=== PATIENT | female | born 1980 | race Caucasian/White ===

== ENCOUNTER 2021-12-15 04:46 | Inpatient (IN) | payer BC, OTHER ==
--- OUTSIDE RECORDS SUMMARY | 2021-12-15 04:48 | XMS REPORT | Continuity of Care Document ---
:1980 Author Organization [facility] t Address [address] [place] [address] Care Team Providers Name Role Phone [phone] Primary Care Physician Unavailable Clementina WAGNER Attending Clinician Beulah Queen MA Attending Clinician Unavailable CLEMENTINA Attending Clinician Unavailable Tristan Attending Clinician Unavailable Amberly Interiano NP Attending Clinician AMBERLY INTERIANO Attending Clinician Unavailable Unique Hope MA Attending Clinician Unavailable Wade MORTON Attending Clinician Garrett WAGNER Attending Clinician Geena MCKNIGHT Attending Clinician Unavailable Rd OJEDA Attending Clinician Unavailable BERNARD CISNEROS Attending Clinician Unavailable Myesha LUCAS Attending Clinician Unavailable RUSSELL KINSEY Attending Clinician Unavailable Payers Payer Name Policy Type Policy Number Effective Date Expiration Date S julian BLUE CROSS BLUE [id number] 2017 MD Donato FER[place]ND[place] PPO 00:00:00 [id number], [place] [address]YBC Problems Condition Condition Condition Status Onset Resolution Last Treating Co mments Source Name Details Category Date Date Treatment Clinician Date Depression Depression Disease Active [facility]15 [facility] 00:00: of 00 Medicin e Allergies, Adverse Reactions, Alerts Allergy Allergy Status Severity Reaction(s) Onset Inactive Treating Comm ents Source Name Type Date Date Clinician No Known DA Active [facility] [place] Family History Family Member Diagnosis Comments Start Date Stop Date Source Natural mother Breast cancer MD Donato santoro Social History Social Habit Start Date Stop Date Quantity Comments Source History [facility] MD Mcknight Alcohol Frequency History [facility] MD Mcknight Alcohol Std Drinks History [facility] MD Mcknight Alcohol Binge Tobacco use and 2021-01-30 2021-01-30 Smokeless tobacco MD Mcknight exposure 00:00:00 00:00:00 non-user Alcohol intake 2021-01-30 2021-01-30 Current drinker of MD Mcknight 00:00:00 00:00:00 alcohol (finding) History [facility] 2021-01-30 2021-01-30 occs. MD Mcknight Alcohol Comment 00:00:00 00:00:00 Sex Ass[birth year] At [birth year] MD [place] on 00:00:00 00:00:00 Smoking Status Start Date Stop Date Source Never smoker [facility] o f Medicine Medications Ordered Filled Start Stop Current Ordering Indication Dosage Frequency Signature Comments Components Source Medication Medication Date Date Medication? Clinician (SIG) Name Name Multiple Yes Take by [facility] 3-22 mouth. [facility] e [facility] 15:33: of (MULTIVITAM 19 Medicin IN WOMEN e OR) triamcinolo Yes [id number] Apply [facility] ne - twice a College (KENALOG) 00:00: day to the of 0.1 % 00 affected Medicin ointment area for e one week valacyclovi 2020- No [id number] 1000mg Take 1 Adrian r (VALTREX) 3-22 04- Tablet by Co llege 1 g tablet 00:00: 04:59 mouth two o f 00 :00 times Medicin daily for e 10 days. Multiple Yes Take by [employer] 3-11 mouth. [employer] e n[employer] 21:17: of (MULTIVITAM 43 Medicin IN WOMEN e OR) buPROPion Yes 150mg Take 150 MD (WELLBUTRIN 3-11 mg by Anderso XL) 150 mg 00:00: mouth n 24 hr 00 daily. tablet buPROPion Yes [id number] 150mg Take 1 [facility] (WELLBUTRIN 3-11 Tablet by Col lege ) 150 MG XL 00:00: mouth of tablet 00 daily. Medicin e buPROPion Yes [id number] 150mg Take 1 [employer] [facility] (WELLBUTRIN 3-11 Tablet by Col lege ) 150 MG XL 00:00: mouth of tablet 00 daily. Medicin e phentermine Yes 1{tbl} Take 1 MD (ADIPEX-P) 1-23 tablet by Donatoshanna evans 37.5 mg 00:00: mouth as n tablet 00 needed. phentermine Yes 37.5mg Take 37.5 Adrian (ADIPEX-P) 1-23 mg by [place] 37.5 MG 00:00: mouth as of tablet 00 needed. Medicin e buPROPion 150mg Take 150 [facility] (WELLBUTRIN 1-21 03-11 mg by Linda otero ) 150 MG XL 00:00: 00:00 mouth of tablet 00 :00 daily. Medicin e Immunizations Ordered Immunization Filled Immunization Date Status Commen ts Source Name Name Pfizer SARS-CoV-2 2020-11-01 Completed MD Sewell rson Vaccination 00:00:00 Pfizer SARS-CoV-2 2020-10-21 Completed [facility] Vaccination 00:00:00 of Medicine Pfizer SARS-CoV-2 2020-10-21 Completed [facility] Vaccination 00:00:00 of Medicine Pfizer SARS-CoV-2 2020-10-07 Completed [facility] Vaccination 00:00:00 of Medicine Pfizer SARS-CoV-2 2020-10-07 Completed [facility] Vaccination 00:00:00 of Medicine Pfizer SARS-CoV-2 2020-10-01 Completed MD Sewell rson Vaccination 00:00:00 Vital Signs Vital Name Observation Time Observation Value Comments Source HEIGHT 2021-01-30 10:23:25 166 cm WEIGHT 2021-01-30 10:23:25 80.6 kg HEIGHT 2021-01-30 10:23:25 166 cm WEIGHT 2021-01-30 10:23:25 80.6 kg Systolic blood 2021-01-06 15:28:00 118 mm[Hg] [facility] Medicine Diastolic blood 2021-01-06 15:28:00 72 mm[Hg] [facility] Medicine Heart rate 2021-01-06 15:28:00 77 /[facility] temperature 2021-01-06 15:28:00 36.78 Flor [facility] Respiratory rate 2021-01-06 15:28:00 16 /min [facility] Body height 2021-01-06 15:28:00 167.6 cm [facility] Body weight 2021-01-06 15:28:00 81.557 kg [facility] BMI 2021-01-06 15:28:00 29.02 kg/m2 [facility] Oxygen saturation in 2021-01-06 15:28:00 98 /min [facility] Arterial blood by Medicine Pulse oximetry Systolic blood 2020-12-26 21:11:00 120 mm[Hg] [facility] Medicine Diastolic blood 2020-12-26 21:11:00 76 mm[Hg] [facility] Medicine Heart rate 2020-12-26 21:11:00 72 /min [facility] Body temperature 2020-12-26 21:11:00 36.11 Flor [facility] Respiratory rate 2020-12-26 21:11:00 18 /min [facility] Body height 2020-12-26 21:11:00 167.6 cm [facility] Body weight 2020-12-26 21:11:00 82.101 kg [facility] BMI 2020-12-26 21:11:00 29.21 kg/m2 [facility] Oxygen saturation in 2020-12-26 21:11:00 98 /min [facility] Arterial blood by Medicine Pulse oximetry Body temperature 2021-11-04 17:53:[address] blanchard Systolic blood 2021-05-15 17:52:00 122 mm[Hg] pressure Diastolic blood 2021-05-15 17:52:00 84 mm[Hg] MD Elizabeth cano pressure Heart rate 2021-05-15 17:52:00 91 /min MD Jony son Oxygen saturation in 2021-05-15 17:52:00 98 /min MD Mcknight Arterial blood by Pulse oximetry Respiratory rate 2021-01-30 15:23:25 20 /min MD Rd blanchard Body height 2021-01-30 15:23:25 166 cm MD Jony sr Body weight 2021-01-30 15:23:25 80.6 kg MD Jony sr BMI 2021-01-30 15:23:25 29.25 kg/m2 MD Jony sr Procedures Procedure Date / Time Performed Performing Clinician Issac otero MD COVID-19 (SARS-COV-2) PCR 2021-11-04 17:54:00 Cristi Panda MD ASYMPTOMATIC HC COVID19 AUTOMATED PCR 2021-05-15 17:57:00 Marleny Mcrae MD US BREAST COMPLETE BILATERAL 2021-01-30 20:25:14 Valdez Interiano MD US CHEST 2021-01-30 20:25:14 Valdez Interiano MD Donato rson MAMMO DIGITAL DIAGNOSTIC 2021-01-30 19:45:05 Valdez Interiano MD BILATERAL HC 2019-NCOV COVID-19 2021-01-27 19:21:00 Valdez Interiano Plan of Care Planned Activity Planned Date Details Comments Source Future Scheduled 2021-04-01 COVID-19 Vaccination (3 MD Mcknight Test 00:00:00 - Booster) [code = COVID-19 Vaccination (3 - Booster)] Future Scheduled LIPID PANEL [code = Ordered: [employer] Test 08340-2] 12/26/2020 of Medicine Future Scheduled HEPATIC FUNCTION PANEL Ordered: [employer] Test [code = 57116-1] 12/26/2020 of Medicine Future Scheduled HIV AB/AG 4TH GEN W Ordered: [employer] Test RFLX [code = 77876-3] 12/26/2020 of Med icine Future Scheduled HEPATITIS C ANTIBODY Ordered: [facility] Test [code = 09071-0] 12/26/2020 of Medicine Future Scheduled TETANUS SHOT (ADULT) [employer] [facility] Test [code = TETANUS SHOT of Medi cine (ADULT)] Future Scheduled BMI FOLLOW UP PLAN [employer] Test [code = BMI FOLLOW UP of Med icine PLAN] Future Scheduled Hepatitis C screening [employer] Test (procedure) [code = of Medic ine 783906759] Future Scheduled Human immunodeficiency [employer] Test virus screening of Medicine (procedure) [code = 219518911] Future Scheduled Screening for malignant [facility] Test neoplasm of cervix of Medici ne (procedure) [code = 742658121] Future Scheduled FLU VACCINE > 6 MONTHS [employer] Test [code = FLU VACCINE > 6 of M edicine MONTHS] Future Scheduled HSV TYPE 1/2 COMBINED Ordered: [employer] Test AB IGM [code = NOCPT] 01/06/2021 of Med icine Future Scheduled LUPUS PROFILE [code = Ordered: [employer] Test NOCPT] 01/06/2021 of Medicine Future Scheduled TSH [code = 22505-3] Ordered: [employer] Test 01/06/2021 of Medicine Future Scheduled TETANUS SHOT (ADULT) [employer] Test [code = TETANUS SHOT of Medi cine (ADULT)] Future Scheduled BMI FOLLOW UP PLAN [employer] Test [code = BMI FOLLOW UP of Med icine PLAN] Future Scheduled Hepatitis C screening [employer] Test (procedure) [code = of Medic ine 120455872] Future Scheduled Human immunodeficiency [employer] Test virus screening of Medicine (procedure) [code = 857687974] Future Scheduled Screening for malignant [facility] Test neoplasm of cervix of Medici ne (procedure) [code = 387104432] Future Scheduled FLU VACCINE > 6 MONTHS [employer] Test [code = FLU VACCINE > 6 of M edicine MONTHS] Future Scheduled TSH REFLEX TO FREE T4 Ordered: [employer] Test [code = 3016-3] 12/26/2020 of Medicine Future Scheduled HEMOGLOBIN A1C [code = Ordered: [employer] Test 4548-4] 12/26/2020 of Medicine Future Scheduled BASIC METABOLIC PANEL Ordered: [employer] Test [code = 05683-4] 12/26/2020 of Medicine Future Scheduled CBC W/AUTO DIFF WITH Ordered: [employer] Test PLATELETS [code = 12/26/2020 of Medicin e 79355-1] Encounters Start End Encounter Admission Attending Care Care Encounter Source Date/Time Date/Time Type Type Clinicians Facility Department ID 2021-11-04 2021-11-04 Outpatient ACOSTA MCRAE MDA MDA [id number] 11:47:05 11:47:05 AMINA shell 2021-05-15 2021-05-15 Outpatient ACOSTA MCRAE MDA MDA [id number] 12:49:34 13:00:17 AMINA shell 2021-01-30 2021-01-30 Outpatient VALDEZ ARELLANO MDA MDA [id number] 14:15:00 23:59:00 Alejandro shell 2021-01-30 2021-01-30 Outpatient VALDEZ ARELLANO MDA MDA [id number] 13:07:37 14:14:00 Alejandro shell 2021-01-30 2021-01-30 Outpatient VALDEZ ARELLANO MDA MDA [id number] 09:50:48 10:57:10 Alejandro shell 2021-01-30 2021-01-30 Outpatient ACOSTA MCRAE MDA MDA [id number] 09:46:32 09:46:45 AMINA shell 2021-01-27 2021-01-27 Outpatient ACOSTA MCRAE MDA MDA [id number] 14:08:16 14:21:50 AMINA shell 2021-01-06 2021-01-06 Office Olvera, BCM [id number] [facility] 10:11:49 16:41:06 Visit Tati AMBULATOR 350.1.13.21 College Y 0.2.7.2.686 of [id number] Medi efraín 300 e 2020-12-26 2020-12-26 Office Garrett, BCM [id number] [facility] 15:08:29 17:36:30 Visit Anabel AMBULATOR 350.1.13.21 College Y 0.2.7.2.686 of [id number] Medi efraín 300 e 2020-10-24 2020-10-24 Outpatient ACOSTA MCKNIGHT, MDA MDA [id number] 13:26:05 13:38:57 NATALIYA shell 2020-10-22 2020-10-22 Outpatient ACOSTA OJEDA, MDA MDA [id number] 15:24:10 15:34:01 Sarah shell 2020-06-20 2020-06-20 Outpatient ACOSTA BLAYNE, MDA MDA [id number] 12:03:24 12:21:19 TAWANA shell 2020-04-29 2020-04-29 Outpatient ACOSTA LUCAS MDA [facility] [id number] 13:59:17 14:13:43 CLEMENTINA shell 2020-04-17 2020-04-17 Outpatient ACOSTA WELLS JR, MDA [facility] [id number] 12:50:49 16:37:22 SUSAN shell Results Test Description Test Time Test Comments Results Result Comments Source COVID-19 (LUCERO-CoV-2) PCR Asymptomatic 2021-11-05 12:21:42 Test Item Value Reference Range Interpretation Comme nts COVID19 SARS Indication (test Employee request code = 20168) COVID19 SARS Result (test code Not Detected Not Detected = 53271-7) COVID19 SARS Interpretation SARS-CoV-2 NOT Detected. Reference (test code = 03051) Range: Not Detected Methodology: The Rivera RealTime SARS-CoV-2 assay is a qualitative real-time reverse forepart reducer polymerase chain reaction (finance director-PCR) test to detect RNA from SARS-CoV-2 in nasal, nasopharyngeal and oropharyngeal swabs from patients with signs and symptoms of infection who are suspected of COVID-19 by their health care provider. The Rivera RealTime SARS-CoV-2 performed on the SPark!000 System is a dual target assay with primers and probes for the RdRp and N genes. Results must be interpreted within the context of all relevant clinical and laboratory findings, and epidemiological risk factors. Positive results are indicative of the presence of SARS-CoV-2 RNA; clinical correlation with patient history and other diagnostic information is necessary to determine patient infection status. Positive results do not rule out bacterial infection or co-infection with other viruses. Negative results do not preclude SARS-CoV-2 infection and should not be used as the sole basis for patient management decisions. The Rivera RealTime SARS-CoV-2 assay is for in vitro diagnostic use under FDA Emergency Use Authorization only. Testing is limited to laboratories certified under the Clinical Laboratory Improvement Amendments of 1988 (CLIA), 42U.S.C. 263a, to perform high complexity tests. The Test was performed by the CLIA-certified, high-complexity Molecular Diagnostics Laboratory (MDL) at [facility] under the Food and Drug Administration (FDA) s Emergency Use Authorization. Factsheet for patients: https://www.[facility].org/AbbottFactS heetPatientsFactsheet for healthcare providers: https://www.[facility].org/AbbottFactS heetHCP Test performed by:[facility] Molecular Diagnostic [id number] [place] [address] MD McknightCOVID-19 (SARS CoV-2) PCR-Symptomatic [id number] 07:58:02 Test Item Value Reference Range Interpretation Comments COVID19 (SARS CoV-2) Detected Not Detected A This te st is a Result (test code = qualitat ainsley 48055-1) reverse-transcr iptase polymerase walter n reaction (RT-PC R) developed for t he Jennifer LILIAN 680 0 system and inte nded for the detecti on of SARS CoV-2 RNA in human nasophary ngeal specimens from patients who me et COVID-19 clinic al and/or epidemiological criteria. This assay has been approv ed by the FDA for use only under Emergency Use Authorization ( EUA) in laboratories that have been CLIA-certified to perform moderate-comple xity and high-comple xity tests. The performance characteristics of this assay were verified by the Microbiology Laboratory at [facility], CLIA Accreditation # : [id number] and CAP Accreditation # : [id number]. Result s must be interpreted within the context of all relevant clinic al and laboratory find ings and should not form the sole basis for a diagnosis or treatment decis ion. "Presumptive Positive" resul ts are due to partial amplification o f SARS-CoV-2 targ ets and indicates l ow amounts of viru s present in the specimen at or near the limit of detection. Regardless, individuals wit h "Presumptive Positive" resul ts should be manag ed per institutional guidelines as individuals pos itive for SARS-CoV-2 virus, including use o f appropriate inf ection control protoco ls. Internal contro ls are included to ass ess for possible amplification inhibitors. If inhibition is detected, testi ng is repeated and if inhibition is confirmed the specimen is res ulted as "Invalid". W hen an "Invalid" resul t occur, it is recommended to wait 3 days before submitting a ne w specimen for te sting if clinically indicated. COVID19 SARS Source FISHING VESSEL DECKHAND Swab (test code = 20539) CAT (test code = Other->severe CAT) headache Lab Interpretation Abnormal (test code = 78650-6) MD McknightMammography Digital Diagnostic [id number] 20:06:13 Test Item Value Reference Range Interpretation Comments IMP (test code = IMP) 1: Asymmetry in the superior left breast located 10 centimeters from the nipplerequires additional imaging evaluation. An ultrasound exam is recommended. 2: Reported symptoms in the left breast/axilla requires additional imagingevaluation. An ultrasound exam is recommended. BILATERAL US will be performed for dense breast tissue. BI-RADS Category 0:Incomplete: Needs Additional Imaging Evaluation PXN (test code = PXN) Hilda Ramires MD - 01/30/2021 CLINICAL INDICATION:Patient is a 40 year old female and [facility] DIAGNOSTIC BILATERAL COMPARISON:This is a baseline study. FINDINGS:The breasts are heterogeneously dense, which may obscure small masses. There are bilateral retro-pectoral implants. 1: There is an asymmetry seen in the MLO view only in the superior left breastlocated 10 centimeters from the nipple. This is likely overlapping tissues. 2: No mammographic correlate to reported "small purple pot near left breast6:00" or left axillary swelling. In the right breast, no dominant mass, distortion, or suspicious calcificationsare identified. IMPRESSION:1: Asymmetry in the superior left breast located 10 centimeters from the nipplerequires additional imaging evaluation. An ultrasound exam is recommended. 2: Reported symptoms in the left breast/axilla requires additional imagingevaluation. An ultrasound exam is recommended. BILATERAL US will be performed for dense breast tissue. BI-RADS Category 0:Incomplete: Needs Additional Imaging Evaluation Lab Interpretation Abnormal (test code = 61351-5) MD Mcknight- US PELVIS [id number] 09:07:00 Patient Name: TAISHA POWERS Unit No: [id number] Report Has Been Amended EXAMS: CPT CODE: [id number] US PELVIS COMPLETE 10857 Addendum- 07/05/2019 SIGNED 07/05/2019 ADDENDUM: [id number] US/USPELNOBC Please note the following correction in the body regarding uterine measurements: The uterus measures 10.1 x 5.4 x 6.1 cm and contains no focal myometrial abnormalities. at 0907 Reported and signed by: Tori Horner MD Transcribed: 07/05/2019 (0907) Vera Report Pelvic US performed July 042018 COMPARISON: None. CLINICAL HISTORY: Uterine enlargement and abnormal uterine bleeding. DISCUSSION: Real-time carson scale sonography performed of the pelvis via the transabdominal and transvaginal approach. The uterus measures and contains no focal myometrial abnormalities. The endometrium is homogenous and measures 5 mm in thickness. The ovaries are sonographically normal in appearance with the right measuring 52 x 36 x 45 mm and the left measuring 31 x 15 x 28 mm. Simple appearing cyst is presentin the right ovary measuring 46 x 32 x 29 mm. Subcentimeter follicles are seen bilaterally. Normal flow seen in both ovaries. No significant free fluid in seen in the cul de sac. IMPRESSION: 1. Simple appearing cyst is present in the right ovary measuring 46 x 32 x 29 mm. at 1552 Reported and signed by: Tori Horner MD CC: Kavitha Felix MD Technologist: Elizabeth Long RDMS, RVT Probe: Trnscrbd D/ (7382) Vera Orig Print D/T: S: 07/04/2019 (9548) [facility] NAME: [facility] Radiology Department PHYS: Thalia Parr [address] : 1980 AGE: 39 SEX: F [place] [address] LOC: F.RAD PHONE #: [phone] EXAM DATE: 07/04/2019 STATUS: DEP CLI FAX #: [phone] RAD NO: Page 1 Signed Report Patient Name: TAISHA POWERS Unit No: [id number] Report Has Been Amended EXAMS: CPT CODE: [id number] US PELVIS COMPLETE 67214 <Continued> [facility] Department PHYS: Thalia Parr [address] : 1980 AGE: 39 SEX:F [place] [address] LOC: FELECIA PHONE #: [phone] EXAM DATE: 07/04/2019 STATUS: ZORAIDA CLI FAX #: [phone] RAD NO: Page 2 Signed Report- US TRANSVAGINAL [id number] 09:07:00 Patient Name: TAISHA POWERS Unit No: [id number] Report Has Been Amended EXAMS: CPT CODE: [id number] US TRANSVAGINAL W/PELVIS 59204 Addendum- 07/05/2019 SIGNED 07/05/2019 ADDENDUM: [id number] US/TRANPL Please note the following correction in the body regarding uterine measurements: The uterus measures 10.1 x 5.4x 6.1 cm and contains no focal myometrial abnormalities. at 0907 Reported and signed by: Tori Horner MD Transcribed: 07/05/2019 (09) Vera Report Pelvic US performed July 042018 COMPARISON: None. CLINICAL HISTORY: Uterine enlargement and abnormal uterine bleeding. DISCUSSION: Real-time carson scale sonography performed of the pelvis via the transabdominal and transvaginal approach. The uterus measures and contains no focal myometrial abnormalities. The endometrium is homogenous and measures 5 mm in thickness. The ovaries are sonographically normal in appearance with the right measuring 52 x 36 x 45 mm and the left measuring 31 x 15 x 28 mm. Simple appearing cyst is present in the right ovary measuring 46 x 32 x 29 mm. Subcentimeter follicles are seen bilaterally. Normal flow seen in both ovaries. No significant free fluid in seen in the cul de sac. IMPRESSION: 1. Simple appearing cyst is present in the right ovary measuring 46 x 32 x 29 mm. at 4563 Reported and signed by: Tori Horner MD CC: Kavitha Felix MD Technologist: Elizabeth Long RDMS, RVT Probe: [id number] Trnscrbd D/ (5885) Vera Orig Print D/T: S: 07/04/2019 (1555) [facility] NAME: TAISHA POWERS Radiology Department PHYS: Thalia Parr LAMAR [address] : 1980 AGE: 39 SEX: F [place], [place] [address] LOC: AngelaRAD PHONE #: [phone] EXAM DATE: 07/04/2019 STATUS: DEP CLI FAX #: [phone] RAD NO: Page 1 Signed Report Patient Name: TAISHA POWERS Unit No:[id number] Report Has Been Amended EXAMS: CPT CODE: [id number] US TRANSVAGINAL W/PELVIS 01230 <Continued> [facility] NAME: TAISHA POWERS Radiology Department PHYS: Thalia Parr [address] : 1980 AGE: 39 SEX: F [place] [address] LOC: AngelaRAD PHONE #: [phone] EXAM DATE: 07/04/2019 STATUS: DEP CLI FAX #: [phone] RAD NO: Page 2 Signed Report- US PELVIS COMPLETE 2019-07-04 15:52:00 Patient Name: TIASHA POWERS Unit No: [id number] EXAMS: CPT CODE: [id number] US PELVIS COMPLETE 23968 Pelvic US performed July 042018 COMPARISON: None. CLINICAL HISTORY: Uterine enlargement and abnormal uterine bleeding. DISCUSSION: Real-time carson scale sonography performed of the pelvis via the transabdominal and transvaginal approach. The uterus measures and contains no focal myometrial abnormalities. The endometrium is homogenous and measures 5 mm in thickness. The ovaries are sonographically normal in appearance with the right measuring 52 x 36 x 45 mm and the left measuring 31 x 15 x 28 mm. Simple appearing cyst is present in the right ovary measuring 46 x 32 x 29 mm. Subcentimeter follicles are seen bilaterally. Normal flow seen in both ovaries. No significant free fluid in seen in the cul de sac. IMPRESSION: 1. Simple appearing cyst is present in the right ovary measuring 46 x 32 x 29 mm. Electronically Signedby Tori Horner MD on 07/04/2019 at 1552 Reported and signed by: Tori Horner MD CC: Kavitha Felix MD Technologist: Elizabeth Long RDMS, RVT Probe: Trnscrbd D/ (6770) t.CASSG Orig Print D/T: S: 07/04/2019 (4635) [facility] NAME: GRISEL POWERSA Radiology Department PHYS: Thalia Parr [place] [address] : 1980 AGE: 39 SEX: F [place], [place] [address]CAFP NO: [id number] LOC: AngelaRAD PHONE #: [phone] EXAM DATE: 07/04/2019 STATUS: REG CLI FAX #: [phone] RAD NO: Page 1 Signed Report Patient Name: TAISHA POWERS Unit No: [id number] EXAMS: CPT CODE: [id number] US PELVIS COMPLETE 62055 <Continued> [facility] Radiology Department PHYS: NILSA FranciscoThalia larios [place] [address] : 1980 AGE: 39 SEX: F [place] [address] : Mary.RAD PHONE #: [phone] EXAM DATE: 07/04/2019 STATUS: REG CLI FAX #: [phone] RAD NO: Page 2 Signed Report- US TRANSVAGINAL [id number] 15:52:00 Patient Name: TAISHA POWERS Unit No: [id number] EXAMS: CPT CODE: [id number] US TRANSVAGINAL W/PELVIS 72530 Pelvic US performed July 042018 COMPARISON: None. CLINICAL HISTORY: Uterine enlargement and abnormal uterine bleeding. DISCUSSION: Real-time carson scale sonography performed of the pelvis via the transabdominal and transvaginal approach. The uterus measures and contains no focal myometrial abnormalities. The endometrium is homogenous and measures 5 mm in thickness. The ovaries are sonographically normal in appearance with the right measuring 52 x 36 x 45 mm and the left measuring 31 x 15 x 28 mm. Simple appearing cyst is present in the right ovary measuring 46 x 32 x 29 mm. Subcentimeter follicles are seen bilaterally. Normal flow seen in both ovaries. No significant free fluid in seen in the cul de sac. IMPRESSION: 1. Simple appearing cyst is present in the right ovary measuring 46 x 32 x 29 mm. Electronically Signedby Tori Horner MD on 07/04/2019 at 1552 Reported and signed by: Tori Horner MD CC: Kavitha Felix MD Technologist: Elizabeth Long RDMS, RVT Probe: [id number] Trnscrbd D/ (1552) t.SDR.NMG Orig Print D/T: S: 07/04/2019 (6107) [facility] NAME: MARY POWERSSSA Radiology Department PHYS: Thalia Parr [address] : 1980 AGE: 39 SEX: F [place], [place] [address]UBPD NO: [id number] LOC: Mary.RAD PHONE #: [phone] EXAM DATE: 07/04/2019 STATUS: REG CLI FAX #: [phone] RAD NO: Page 1 Signed Report Patient Name: TAISHA POWERS Unit No: [id number] EXAMS: CPT CODE: [id number] US TRANSVAGINAL W/PELVIS 60448 <Continued> [facility] NAME: [facility] Rad[facility] Department PHYS: Thalia Parr [address] : 1980 AGE: 39 SEX: F [place], [place] [address] LOC: Mary.RAD PHONE #: [phone] EXAM DATE: 07/04/2019 STATUS: REG CLI FAX #: [phone] RAD NO: Page 2 Signed Report
--- OUTSIDE RECORDS SUMMARY | 2021-12-15 04:48 | XMS REPORT | Clinical Summary ---
:1980 Author Organization [facility] MD [facility] Address [address] [place] [address] Care Team Providers Name Role Phone MD Lio Primary Care Provider Allergies No known active allergies Medications Medication Sig Dispensed Refills Start Date End Date Status phentermine (ADIPEX-P) Take 1 tablet by 0 11/09/2020 Active 37.5 mg tablet mouth as needed. buPROPion (WELLBUTRIN Take 150 mg by 0 12/26/2020 Active XL) 150 mg 24 hr tablet mouth daily. 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 WORKER symptom in [facility] 01/30/2021 Hospital Encounter Radiology Cherise Renteria Other sig n and Amberly, VACUUM WORKER symptom in [facility] 01/30/2021 Office Visit Breast Undiagnosed Cherise Renteria Other sig n and Amberly, VACUUM WORKER symptom in [facility] (Primary Dx) 01/30/2021 NPR Patient Access Lynne Vaca MD Services 01/30/2021 Telephone Cancer Prevention Cherise Renteria NP 01/30/2021 Travel 01/27/2021 Clinical Support Lynne Schultz MD Suspected COVID-19 Madhavi Hope (Primary Dx) GILBERT Calhoun 01/27/2021 Orders Only Cancer Prevention Cherise Renteria sign and IVANIA Gaming symptom in [address] (Primary Dx) 01/27/2021 Travel 01/15/2021 Travel after 12/15/2020 Immunizations Name Administration Dates Next Due Pfizer SARS-CoV-2 Vaccination 11/01/2020, 10/01/2020 Surgical History Surgery Date Site/Laterality Comments AUGMENTATION MAMMAPLASTY 1st set : 20; 2017; breast lift W/PROSTHETIC IMPLANT and replace ment Family History Medical History Relation Name Comments Breast cancer Mother Relation Name Status Comments Mother Alive Social History Tobacco Use Types Packs/Day Years Used Date Never Smoker Smokeless Tobacco: Never Used Tobacco Cessation: Counseling Given: Yes Alcohol Use Standard Drinks/Week Comments Yes 0 (1 standard drink = 0.6 oz pure alcoho l) occs. Alcohol Habits Answer Date Recorded How often do you have a drink containing alcohol? Not asked How many drinks containing alcohol do you have on a typical Not asked day when you are drinking? How often do you have six or more drinks on one occasion? No t asked Comment: occs. 01/30/2021 Sex Assigned at Date Recorded Not on file Job Start Date Occupation Industry Not on file Not on file Not on file Obstetrics History Para Term AB IAB SAB Ectopic Multiple Living Live Births 4 4 Date Outcome GA Total Labor/2nd/3rd Weight Sex Delivery Anes PTL Radha A 1 A5 Name Clin Labor Para Para Para Para Comments Menarche: 14 Parity: 18 OBC: used for 2 years Hormonal Therapy: none Last Pap: 2020 (OS) normal Abnormal Pap: none Last Max: no testing Last Colon: age < 45 Breast Bx: none Last Filed Vital Signs Vital Sign Reading Time Taken Comments Blood Pressure 122/84 05/15/2021 12:52 PM CDT Pulse 91 05/15/2021 12:52 PM CDT Temperature 36.2 C (97.1 F) 11/04/2021 11:53 AM INSPECTOR CLIP ON SUNGLASSES Respiratory Rate 20 01/30/2021 10:23 AM CDT Oxygen Saturation 98% 05/15/2021 12:52 PM CDT Inhaled Oxygen Concentration - - Weight 80.6 kg (177 lb 11.1 oz) 01/30/2021 10:23 AM CDT Height 166 cm (5' 5.35") 01/30/2021 10:23 AM CDT Body Mass Index 29.25 01/30/2021 10:23 AM CDT Plan of Treatment Health Maintenance Due Date Last Done Comments COVID-19 Vaccination (3 - Booster) 04/01/2021 11/01/2020, 0 10/21/2020, 10/01/2020 Procedures Procedure Name Priority Date/Time Associated Comments Diagnosis MD COVID-19 Routine 11/04/2021 11:54 Suspected COVID-19 Resul ts for this (SARS-COV-2) PCR AM INSPECTOR CLIP ON SUNGLASSES procedure a re in ASYMPTOMATIC the results section. COVID19 AUTOMATED Routine 05/15/2021 12:57 Suspected COVID- 19 Results for this PCR PM CDT procedure are i n the results section. US CHEST Routine 01/30/2021 3:25 Other sign and Results f or this PM CDT symptom in breast procedure are in the results section. US BREAST COMPLETE Routine 01/30/2021 3:25 Other sign and Res ults for this BILATERAL PM CDT symptom in breast procedure are in the results section. MAMMO DIGITAL Routine 01/30/2021 2:45 Other sign and Results for this DIAGNOSTIC BILATERAL PM CDT symptom in breast pr ocedure are in the results section. 2019-NCOV COVID-19 Routine 01/27/2021 2:21 Suspected COVID -19 Results for this PM CDT procedure are i n the results section. after 12/15/2020 Results COVID-19 (LUCERO-CoV-2) PCR Asymptomatic (11/04/2021 11:54 AM INSPECTOR CLIP ON SUNGLASSES)Only the most recent of2 resultswithin the time period is included. COVID19 SARS Employee request [facility] COVID19 SARS Result Not Detected Not Detected [facility] COVID19 SARS SARS-CoV-2 NOT Detected. [facility] Reference Range: Not Detected Methodology: The Rivera Real Time SARS-CoV-2 assay is a qualitative real-time reverse pot runner polymerase chain reaction (spotter driver-PCR) test to detect RNA from SARS-CoV-2 in nasal, nasopharyngeal and oropharyngeal swabs from patients with signs and symptoms of infection who ar e suspected of COVID-19 by their health care provider. The Rivera RealTime SARS-CoV-2 performed on the Kionix m2000 System is a dual target assay with primers and probes for the RdRp and N genes. Results must be interpreted within the context of all relevant clinical and laboratory findings, and epidemiological risk factors. Positive results are indicative of the presence of SARS-CoV-2 RNA; clinical correlation with patient history and other diagnostic information is ne cessary to determine patient infection status. Positive results do not rule out bacterial infection or co-infection with other viruses. Negative results do not preclude SARS- CoV-2 infection and should not be used as the sole basis for patient management decisions. The Kionix RealTime SARS-CoV -2 assay is for in vitro diagnostic use under FDA Emergency Use Authorization only. Testing is limited to laboratories certified under the Clinical Laboratory Improvement Linda ndments of 1988 (CLIA), 42U.S.C. 263a, to perform high complexity tests. The T est was performed by the CLIA-certified, high- complexity Molecular Diagnostics Laboratory (MDL) at [facility] under the Food and Drug Administration (FDA) s Emergency Use Authorization. Factsheet for patients: https://www.[employer].org/Abb ottFactSheetPatients Factsheet for healthcare pro viders: https://www.[employer].org/AbbottFactSheetHCP Test performed by: The [facility] [address] [place] [address] Specimen Nasopharyngeal Swab Performing Organization Address City/State/ZIP Code Phon e Number [facility] Unless otherwise noted, [place], [place] [id number] [place] [address] all lab tests performed by: Division of Pathology and Laboratory Medicine [address] (ABNORMAL) COVID-19 (SARS CoV-2) PCR-Symptomatic [facility] (05/15/2021 12:57 PM CDT) COVID19 (SARS Detected (C) Not Detected [facility] Co[facility]) Result Comment: [facility] This test is a qualitative r everse-transcriptase polymerase chain reaction (RT- PCR) developed for the Jennifer LILIAN 6800 system and intended for the detection of SARS CoV-2 RNA in human nasopharyngeal specimens from patients who meet COVID-19 clinical and/or epidemiological crite jaylon. This assay has been approved by the FDA for use only under Emergency Use Authorization (EUA) in laboratories that have been CLIA-certified to perform moderate-complexity and high-complexity tests. The performance characteristics of this assa y were verified by the Microbiology Laboratory at [facility] CLIA Accreditation #: [id number] and CAP Accreditation #: [id number]. Results must be interpreted within the context of all relevant clinical and laboratory findings and shou ld not form the sole basis for a diagnosis or treatment decision. "Presumptive Positive" resul ts are due to partial amplification of SARS-CoV-2 targets and indicates low amounts of virus present in the specimen at or near the limit of detection. Regardless, individuals with "Presumptive Positive" results should be managed per institutional gu idelines as individuals positive for SARS-CoV-2 virus, including use of appropriate infection control protocols. Internal controls are includ ed to assess for possible amplification inhibitors. If inhibition is detected, testing is repeated and if inhibition is confirmed the specimen is resulted as "Invalid". When an "Invalid" result occur, it is recommended to wait 3 days before submitting a new specimen for forrest ting if clinically indicated. COVID19 SARS VACUUM WORKER Swab [facility] Specimen Nasopharyngeal Swab Narrative [facility] - 1 2:58 AM CDT Other->severe headache Performing Organization Address City/State/ZIP Code Phon e Number [facility] Unless otherwise noted, [place] [address] [place] all lab tests performed by: Division of Pathology and Laboratory Medicine [facility] US Chest for Breast Ultrasound (01/30/2021 3:25 PM CDT) Specimen Impressions [id number] - 01/30/2021 4:09 PM CDT No sonographic features of malignancy ar e seen in either breast. Probable sebaceous cyst in right axilla as detailed above. ACR BI-RADS Category: 3. Probably benign . Recommend clinical correlation with prob able sebaceous cyst in left axilla. In the absence of clinical concern, recommend follow-up ultrasound in 3 months to ensure stability or resolution. Narrative [id number] - 01/30/2021 4:09 PM CDT FULL RESULT: Examination: US BREAST COMPLETE BILATERA L, US CHEST 01/30/2021 3:25 PM Clinical History: 40-year-old woman with report of symptoms in left breast and left axilla. History of dense breasts. Indication: Unspecified breast disorder Comparison: Mammography of January 30 Technique: Real-time sonographic imaging of both breasts (including all 4 quadrants and retroareolar region) was performed. Ultrasound imaging was performed of the left axilla (levels I, II, and III) an d left chest/mediastinum (to evaluate th e internal mammary lymph nodes). Images were obtained in multiple scanning planes. Findings: LEFT BREAST: An implant is present. Gaby ent presents with symptom of "small dot" red/purple in color left breast 5 to 6 o'clock, 3 cm from nipple. No sonographic correlate is identified; clinical manage ment is recommended. No sonographic feat ures of malignancy are seen in left breast. No sonographic correlate to reported asymmetry in left upper breast, which is consistent with overlapping tissues. LEFT REGIONAL JULIO CESAR BASINS: No adenopath y seen. In region of left axillary palpability, there appears to be a sebaceous cyst, measuring 0.5 x 0.5 x 0.2 cm. Recommend clinical correlation. RIGHT BREAST: An implant is present. No sonographic features of malignancy are seen. Procedure Note Hilda Ramires MD - 01/30/2021 FULL RESULT: Examination: US BREAST COMPLETE BILATERA L, US CHEST 01/30/2021 3:25 PM Clinical History: 40-year-old woman with report of symptoms in left breast and left axilla. History of dense breasts. Indication: Unspecified breast disorder Comparison: Mammography of January 30 Technique: Real-time sonographic imaging of both breasts (including all 4 quadrants and retroareolar region) was performed. Ultrasound imaging was performed of the left axilla (levels I, II, and III) and left chest/mediastinum (to evaluate the inter nal mammary lymph nodes). Images were obtained in multiple scanning planes. Findings: LEFT BREAST: An implant is present. Gaby ent presents with symptom of "small dot" red/purple in color left breast 5 to 6 o'clock, 3 cm from nipple. No sonographic correlate is identified; clinical management is recommended. No sonographic features of malignancy are seen in left breast. No sonographic correlate to reported asymmetry in left upper breast, which is consistent with overlapping tissues. LEFT REGIONAL JULIO CESAR BASINS: No adenopath y seen. In region of left axillary palpability, there appears to be a sebaceous cyst, measuring 0.5 x 0.5 x 0.2 cm. Recommend clinical correlation. RIGHT BREAST: An implant is present. No sonographic features of malignancy are seen. IMPRESSION: No sonographic features of malignancy ar e seen in either breast. Probable sebaceous cyst in right axilla as detailed above. ACR BI-RADS Category: 3. Probably benign . Recommend clinical correlation with prob able sebaceous cyst in left axilla. In the absence of clinical concern, recommend follow-up ultrasound in 3 months to ensure stability or resolution. Performing Organization Address City/State/ZIP Code Phon e Number [id number] US Breast Complete Bilateral (01/30/2021 3:25 PM CDT) Specimen Impressions [id number] - 01/30/2021 4:09 PM CDT No sonographic features of malignancy ar e seen in either breast. Probable sebaceous cyst in right axilla as detailed above. ACR BI-RADS Category: 3. Probably benign . Recommend clinical correlation with prob able sebaceous cyst in left axilla. In the absence of clinical concern, recommend follow-up ultrasound in 3 months to ensure stability or resolution. Narrative [id number] - 01/30/2021 4:09 PM CDT FULL RESULT: Examination: US BREAST COMPLETE BILATERA L, US CHEST 01/30/2021 3:25 PM Clinical History: 40-year-old woman with report of symptoms in left breast and left axilla. History of dense breasts. Indication: Unspecified breast disorder Comparison: Mammography of January 30 Technique: Real-time sonographic imaging of both breasts (including all 4 quadrants and retroareolar region) was performed. Ultrasound imaging was performed of the left axilla (levels I, II, and III) an d left chest/mediastinum (to evaluate th e internal mammary lymph nodes). Images were obtained in multiple scanning planes. Findings: LEFT BREAST: An implant is present. Gaby ent presents with symptom of "small dot" red/purple in color left breast 5 to 6 o'clock, 3 cm from nipple. No sonographic correlate is identified; clinical manage ment is recommended. No sonographic feat ures of malignancy are seen in left breast. No sonographic correlate to reported asymmetry in left upper breast, which is consistent with overlapping tissues. LEFT REGIONAL JULIO CESAR BASINS: No adenopath y seen. In region of left axillary palpability, there appears to be a sebaceous cyst, measuring 0.5 x 0.5 x 0.2 cm. Recommend clinical correlation. RIGHT BREAST: An implant is present. No sonographic features of malignancy are seen. Procedure Note Hilda Ramires MD - 01/30/2021 FULL RESULT: Examination: US BREAST COMPLETE BILATERA L, US CHEST 01/30/2021 3:25 PM Clinical History: 40-year-old woman with report of symptoms in left breast and left axilla. History of dense breasts. Indication: Unspecified breast disorder Comparison: Mammography of January 30 Technique: Real-time sonographic imaging of both breasts (including all 4 quadrants and retroareolar region) was performed. Ultrasound imaging was performed of the left axilla (levels I, II, and III) and left chest/mediastinum (to evaluate the inter nal mammary lymph nodes). Images were obtained in multiple scanning planes. Findings: LEFT BREAST: An implant is present. Gaby ent presents with symptom of "small dot" red/purple in color left breast 5 to 6 o'clock, 3 cm from nipple. No sonographic correlate is identified; clinical management is recommended. No sonographic features of malignancy are seen in left breast. No sonographic correlate to reported asymmetry in left upper breast, which is consistent with overlapping tissues. LEFT REGIONAL JULIO CESAR BASINS: No adenopath y seen. In region of left axillary palpability, there appears to be a sebaceous cyst, measuring 0.5 x 0.5 x 0.2 cm. Recommend clinical correlation. RIGHT BREAST: An implant is present. No sonographic features of malignancy are seen. IMPRESSION: No sonographic features of malignancy ar e seen in either breast. Probable sebaceous cyst in right axilla as detailed above. ACR BI-RADS Category: 3. Probably benign . Recommend clinical correlation with prob able sebaceous cyst in left axilla. In the absence of clinical concern, recommend follow-up ultrasound in 3 months to ensure stability or resolution. Performing Organization Address City/State/ZIP Code Phon e Number [id number] (ABNORMAL) Mammography Digital Diagnostic Bilateral (01/30/2021 2:45 PM CDT) Specimen Impressions [facility]VIEW - 01/30/2021 3:06 PM CDT 1: Asymmetry in the superior left breast located 10 centimeters from the nipple requires additional imaging evaluation. An ultrasound exam is recommended. 2: Reported symptoms in the left breas t/axilla requires additional imaging evaluation. An ultrasound exam is recomm ended. BILATERAL US will be performed for dense breast tissue. BI-RADS Category 0: Incomplete: Needs Additional Imaging Rosamaria luation Letty SNEED - 01/30/2021 3:06 PM CDT CLINICAL INDICATION: Patient is a 40 year old female and is s een for other signs and symptoms in the breast MAMMO DIGITAL DIAGNOSTIC BILATERAL COMPARISON: This is a baseline study. FINDINGS: The breasts are heterogeneously dense, w hich may obscure small masses. There are bilateral retro-pectoral impla nts. 1: There is an asymmetry seen in the M LO view only in the superior left breast located 10 centimeters from the nipple. This is likely overlapping tissues. 2: No mammographic correlate to report ed "small purple pot near left breast 6:00" or left axillary swelling. In the right breast, no dominant mass, d istortion, or suspicious calcifications are identified. Procedure Note Hilda Ramires MD - 01/30/2021 CLINICAL INDICATION: Patient is a 40 year old female and is s een for other signs and symptoms in the breast MAMMO DIGITAL DIAGNOSTIC BILATERAL COMPARISON: This is a baseline study. FINDINGS: The breasts are heterogeneously dense, w hich may obscure small masses. There are bilateral retro-pectoral impla nts. 1: There is an asymmetry seen in the ML O view only in the superior left breast located 10 centimeters from the nipple. This is likely overlapping tissues. 2: No mammographic correlate to reporte d "small purple pot near left breast 6:00" or left axillary swelling. In the right breast, no dominant mass, d istortion, or suspicious calcifications are identified. IMPRESSION: 1: Asymmetry in the superior left breas t located 10 centimeters from the nipple requires additional imaging evaluation. An ultrasound exam is recommended. 2: Reported symptoms in the left breast /axilla requires additional imaging evaluation. An ultrasound exam is recomm ended. BILATERAL US will be performed for dense breast tissue. BI-RADS Category 0: Incomplete: Needs Additional Imaging Rosamaria luation Performing Organization Address City/State/ZIP Code Phon e Number [facility] after 12/15/2020 Insurance Payer Benefit Plan / Subscriber ID Effective Dates Phone Addre ss Type Group [employer] PPO POS [id number] 2017-Present [id number] [place] [address] Care Teams Maxillofacial Prosthetics Dentist Relationship Specialty Start Date End Date Lynne Vaca MD PCP - General Breast Medical Oncology 01/15/[address] [place] [id number]
[2021-12-15] MEDS ORDERED: NA CHLORIDE 0.9% 1,000 ML ONE (05:40)
[2021-12-15 06:12] LABS: ALT/SGPT 78 U/L (12-78); AST/SGOT 125 U/L (15-37); Albumin 3.2 g/dL (3.4-5.0); Alkaline Phosphatase 71 U/L (45-117); BUN Blood Urea Nitrogen 13 mg/dL (7-18); Bicarbonate 26 mmol/L (21-32); Bilirubin Direct < 0.1 mg/dL (0-0.2); Bilirubin Total 0.3 mg/dL (0.2-1.0); Glucose Level 106 mg/dL (74-106); Magnesium 2.3 mg/dL (1.8-2.4); NT PRO-BNP 59 pg/mL (<125); Potassium 3.5 mmol/L (3.5-5.1); Protein, Total 6.3 g/dL (6.4-8.2); Sodium Level 140 mmol/L (136-145)
[2021-12-15 06:50] LABS: Urine Blood Negative (Negative); Urine Glucose Negative (Negative); Urine Protein Negative (Negative); Urine Specific Gravity 1.025 (1.005-1.030); Urine pH 7.5 (5.0-7.0)
[2021-12-15 07:05] LABS: Barbiturates NEGATIVE (NEGATIVE); Benzodiazepines NEGATIVE (NEGATIVE); Cocaine NEGATIVE (NEGATIVE); METHAMPHETAM NEGATIVE (NEGATIVE); Methadone NEGATIVE (NEGATIVE); Opiates NEGATIVE (NEGATIVE); Phencyclidine NEGATIVE (NEGATIVE); THC Cannibis NEGATIVE (NEGATIVE)
[2021-12-15] MEDS ORDERED: MORPHINE 2 MG/ML SYR ONE (07:36)
[2021-12-15] MEDS ORDERED: ONDANSETRON 4 MG/2 ML VIAL ONE ×2 (07:36→15:11)
--- NOTE | 2021-12-15 07:58 | RAD REPORT ---
EXAM DESCRIPTION: US - Abdomen Exam Limited - 12/15/2021 7:50 am CLINICAL HISTORY: ABD PAIN COMPARISON: No comparisons FINDINGS: Cholelithiasis noted. No gallbladder wall thickening. Negative sonographic Bourgeois's sign. The common bile duct is mildly dilated at 7 millimeters. IMPRESSION: Cholelithiasis without sonographic evidence of acute cholecystitis. Mild biliary ductal dilatation. Could further evaluated with MRCP as clinically indicated.
[2021-12-15] MEDS ORDERED: PANTOPRAZOLE 40 MG INJ ONE (08:09)
[2021-12-15 08:44] LABS: Absolute Lymphocytes (CBC) 0.7 K/uL (0.7-4.9); Hematocrit 40.6 % (36.0-45.0); Lymphocytes % 9.2 % (15.3-44.8); MPV 9.3 fL (7.6-11.3); RBC Red Blood Cell Count 4.56 M/uL (3.86-4.86)
--- NOTE | 2021-12-15 08:48 | EKG ---
Test Date: 2021-12-15 Test Time: 04:49:31 Deodorizer Operator: JHONNY MEASUREMENT RESULTS: Intervals: Rate: 67 TN: 136 QRSD: 88 QT: 424 QTc: 448 Logan: P: 70 TN: 136 QRS: 66 T: 60 INTERPRETIVE STATEMENTS: Normal sinus rhythm Normal ECG No previous ECG available for comparison Electronically Signed On 12-15-21 08:47:33 PROOF INSPECTOR by Bright Duffy
--- NOTE | 2021-12-15 08:51 | EDPHYS ---
Physician Documentation [facility] Name: Cinthia Martinez Age: 41 yrs Sex: Female : 1980 Arrival Date: 12/15/2021 Time: 04:47 Bed 5 Private MD: ED Physician Faisal Mcknight HPI: 12/15 05:22 This 41 yrs old Female presents to ER via EMS with complaints of Chest Pain. mh7 05:22 The patient or guardian reports chest pain that is located primarily in the substernal mh7 area. 05:22 Onset: today, at 00:00. The pain does not radiate. mh7 05:22 Associated signs and symptoms: Pertinent positives: Pertinent negatives: abdominal mh7 pain, cough, diaphoresis, dizziness, headache, lower extremity pain, lower extremity swelling, lightheadedness, nausea, near syncope, palpitations, recent travel, shortness of breath, syncope, vomiting. 05:22 The chest pain is described as aching. Duration: The patient or guardian reports mh7 multiple episodes, that are intermittent, that wax and wane, with no pattern. Modifying factors: The symptoms are alleviated by nothing. the symptoms are aggravated by nothing. Severity of pain: At its worst the pain was moderate today, in the emergency department the pain has improved moderately. EMS care prior to arrival includes: aspirin, nitroglycerin, x 1. 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 - Social history:: Smoking status: Patient denies any tobacco usage or history of. Patient/guardian denies using alcohol, street drugs. ROS: 05:22 Constitutional: Negative for fever, chills, and weight loss, Eyes: Negative for injury, mh7 pain, redness, and discharge, ENT: Negative for injury, pain, and discharge, Neck: Negative for injury, pain, and swelling, Respiratory: Negative for shortness of breath, cough, wheezing, and pleuritic chest pain, Abdomen/GI: Negative for abdominal pain, nausea, vomiting, diarrhea, and constipation, Back: Negative for injury and pain, : Negative for injury, bleeding, discharge, and swelling, MS/Extremity: Negative for injury and deformity, Skin: Negative for injury, rash, and discoloration, Neuro: Negative for headache, weakness, numbness, tingling, and seizure, Psych: Negative for depression, anxiety, suicide ideation, homicidal ideation, and hallucinations, Allergy/Immunology: Negative for hives, rash, and allergies, Endocrine: Negative for neck swelling, polydipsia, polyuria, polyphagia, and marked weight changes, Hematologic/Lymphatic: Negative for swollen nodes, abnormal bleeding, and unusual bruising. Exam: 05:22 Constitutional: This is a well developed, well nourished patient who is awake, alert, mh7 and in no acute distress. Head/Face: Normocephalic, atraumatic. Eyes: Pupils equal round and reactive to light, extra-ocular motions intact. Lids and lashes normal. Conjunctiva and sclera are non-icteric and not injected. Cornea within normal limits. Periorbital areas with no swelling, redness, or edema. Neck: Trachea midline, no thyromegaly or masses palpated, and no cervical lymphadenopathy. Supple, full range of motion without nuchal rigidity, or vertebral point tenderness. No Meningismus. Chest/axilla: Normal chest wall appearance and motion. Nontender with no deformity. No lesions are appreciated. Cardiovascular: Regular rate and rhythm with a normal S1 and S2. No gallops, murmurs, or rubs. Normal PMI, no JVD. No pulse deficits. Respiratory: Lungs have equal breath sounds bilaterally, clear to auscultation and percussion. No rales, rhonchi or wheezes noted. No increased work of breathing, no retractions or nasal flaring. Abdomen/GI: Soft, non-tender, with normal bowel sounds. No distension or tympany. No guarding or rebound. No evidence of tenderness throughout. Back: No spinal tenderness. No costovertebral tenderness. Full range of motion. Skin: Warm, dry with normal turgor. Normal color with no rashes, no lesions, and no evidence of cellulitis. MS/ Extremity: Pulses equal, no cyanosis. Neurovascular intact. Full, normal range of motion. Neuro: Awake and alert, GCS 15, oriented to person, place, time, and situation. Cranial nerves II-XII grossly intact. Motor strength 5/5 in all extremities. Sensory grossly intact. Cerebellar exam normal. Normal gait. Psych: Awake, alert, with orientation to person, place and time. Behavior, mood, and affect are within normal limits. 05:22 ECG was reviewed by the Attending Physician. 07:34 Musculoskeletal/extremity: DVT Exam: No signs of deep vein thrombosis. no pain, no ivelisse swelling, no tenderness, negative Homans' sign noted on exam, no appreciated bluish discoloration, no erythema, no increased warmth. Vital Signs: 04:49 BP 127 / 77; Pulse 72; Resp 24; Temp 98.4; Pulse Ox 96% ; Weight 79.38 kg; Height 5 ft. sf1 6 in. (167.64 cm); Pain 7/10; 08:50 BP 111 / 85; Pulse 111; Resp 17; Pulse Ox 99% on R/A; ke1 04:49 Body Mass Index 28.25 (79.38 kg, 167.64 cm) sf1 Mary Alice Coma Score: 05:32 Eye Response: spontaneous(4). Verbal Response: oriented(5). Motor Response: obeys st1 commands(6). Total: 15. Procedures: 08:31 Peripheral line: by aseptic technique a peripheral line was placed in the left external ivelisse jugular vein. MDM: 07:14 Patient medically screened. ivelisse 07:32 Differential diagnosis: abnormal EKG, acute myocardial infarction, acute pericarditis, ivelisse coronary artery disease chest wall pain, esophagitis, hiatal hernia, pancreatitis, pulmonary embolus, stable angina. HEART Score: History: Slightly Suspicious (0), ECG: Normal (0), Age: < or = 45 years (0), Risk Factors: No Risk Factors Known (0), Troponin: < or = 1 x Normal Limit (0). The patient was not given aspirin in the Emergency Department. The patient's deep vein thrombosis risk score was calculated as follows: Total Score: 0. This patient was found to be at low risk for a deep vein thrombosis by using the Well's assessment criteria. The patient's pulmonary embolism risk score was calculated as follows: Total Score: 0-2 points. This patient was found to be at low risk for a pulmonary embolism by using the Well's assessment criteria. MIRELA Risk Score: TOTAL SCORE = 0. Data reviewed: vital signs, nurses notes, lab test result(s), EKG, radiologic studies, plain films. Data interpreted: hall monitor: rate is 72 beats/min, rhythm is regular, Pulse oximetry: on room air is 96 %. Test interpretation: by ED physician or midlevel provider: ECG, plain radiologic studies. Counseling: I had a detailed discussion with the patient and/or guardian regarding: the historical points, exam findings, and any diagnostic results supporting the discharge/admit diagnosis, lab results, radiology results. 12/15 05:03 Order name: Basic Metabolic Panel [facility] 12/15 05:03 Order name: CBC with Diff [facility] 12/15 05:03 Order name: LFT's; Complete Time: 06:15 [facility] 12/15 05:03 Order name: Magnesium; Complete Time: 06:15 [facility] 12/15 05:03 Order name: NT PRO-BNP; Complete Time: 06:15 [facility] 12/15 05:03 Order name: PT-INR; Complete Time: 08:58 [facility] 12/15 05:03 Order name: Troponin HS; Complete Time: 06:15 [facility] 12/15 05:03 Order name: UDS; Complete Time: 07:53 [facility] 12/15 05:03 Order name: ETOH Level; Complete Time: 06:15 [facility] 12/15 05:04 Order name: Basic Metabolic Panel; Complete Time: 06:15 [facility] 12/15 05:04 Order name: CBC with Automated Diff [facility] 12/15 06:50 Order name: Urine Dipstick-Ancillary; Complete Time: 07:00 [facility] 12/15 06:51 Order name: Urine --Ancillary (enter results); Complete Time: 10:12 [facility] 12/15 07:29 Order name: D-Dimer; Complete Time: 10:12 [facility] 12/15 05:03 Order name: XRAY Chest (1 view) [facility] 12/15 07:29 Order name: US Abdomen Limited; Complete Time: 08:31 [facility] 12/15 07:29 Order name: Lipase; Complete Time: 08:51 [facility] 12/15 08:34 Order name: Cholangiogram; Complete Time: 12:24 [facility] 12/15 09:14 Order name: US Extremity Venous W Compression Pablo; Complete Time: 12:24 [facility] 12/15 09:14 Order name: CT Chest For PE Angio; Complete Time: 12:24 [facility] 12/15 09:24 Order name: SARS-COV-2 RT PCR (Document "Date of Onset" if Symptomatic) [facility] 12/15 09:25 Order name: SARS-COV-2 RT PCR [facility] 12/15 13:00 Order name: CBC Smear Scan [facility] 12/15 13:22 Order name: Comprehensive Metabolic Panel [facility] 12/15 13:22 Order name: CBC with Automated Diff [facility] 12/15 13:22 Order name: CBC with Automated Diff [facility] 12/15 13:22 Order name: Comprehensive Metabolic Panel [facility] 12/15 13:25 Order name: Troponin High Sensitivity [facility] 12/15 13:25 Order name: Troponin High Sensitivity [facility] 12/15 13:25 Order name: Troponin High Sensitivity [facility] 12/15 05:03 Order name: EKG; Complete Time: 05:04 [facility] 12/15 05:03 Order name: Cardiac monitoring; Complete Time: 05:43 [facility] 12/15 05:03 Order name: EKG - Nurse/Tech; Complete Time: 05:44 [facility] 12/15 05:03 Order name: IV Saline Lock; Complete Time: 05:43 [facility] 12/15 05:03 Order name: Labs collected and sent; Complete Time: 07:04 [facility] 12/15 05:03 Order name: O2 Per Protocol; Complete Time: 05:43 [facility] 12/15 05:03 Order name: O2 Sat Monitoring; Complete Time: 05:43 [facility] 12/15 05:03 Order name: Urine Dipstick-Ancillary (obtain specimen); Complete Time: 06:50 [facility] 12/15 05:03 Order name: Urine Test (obtain specimen); Complete Time: 06:50 [facility] 12/15 05:26 Order name: Labs - recollect needed: purple and blue top; Complete Time: 09:13 [facility] 12/15 09:14 Order name: CT Abd/Pelvis - IV Contrast Only; Complete Time: 12:24 [facility] 12/15 13:22 Order name: CONS Physician Consult [facility] 12/15 13:22 Order name: NPO EDAR EC:22 Rate is 67 beats/min. Rhythm is regular, Normal Sinus Rhythm with No ectopy. QRS Hyden 7 is Normal. MO interval is normal. QRS interval is normal. QT interval is normal. No Q waves. T waves are Normal. No ST changes noted. Clinical impression: Normal ECG. Administered Medications: 05:39 Drug: NS 0.9% 1000 ml Route: IV; Rate: 1 bolus; Site: left antecubital; st1 08:57 Follow up: IV Status: Completed infusion ke1 07:39 Drug: morphine 2 mg Route: IVP; Site: left antecubital; ke1 08:00 Follow up: Response: Pain is decreased ke1 07:39 Drug: Zofran (Ondansetron) 4 mg Route: IVP; Site: left antecubital; ke1 08:00 Follow up: Response: No adverse reaction ke1 08:10 Drug: ProTONIX (pantoprazole) 40 mg Route: IVP; Site: left antecubital; ke1 08:33 Follow up: Response: No adverse reaction; RASS: Deep sedation (-4) ke1 09:07 Drug: Rocephin (cefTRIAXone) 1 grams Route: IV; Rate: per protocol; Site: left jugular; ke1 09:15 Follow up: Response: No adverse reaction ke1 09:15 Follow up: IV Status: Completed infusion ke1 Disposition Summary: 12/15/21 08:51 Hospitalization Ordered Hospitalization Status: Observation ivelisse Location: Telemetry/MedSurg (observation) ivelisse Condition: Stable ivelisse Problem: new ivelisse Symptoms: have improved ivelisse Bed/Room Type: Standard [facility] Room Assignment: [facility] Provider: Maru Salcedo(12/15/21 09:12) ivelisse Diagnosis - Calculus of gallbladder and bile duct without cholecystitis with obstruction ivelisse - Chest pain, unspecified ivelisse - Gastro-esophageal reflux disease with esophagitis ivelisse Forms: - Medication Reconciliation Form ivelisse - SBAR form ivelisse Signatures: Dispatcher [employer] Faisal Milan MD MD cha Westbrook, MyKena 2 Daniel Dorado MD MD 7 Richelle Carlson RN RN st1 Kaykay Quintanilla RN RN sf1 Jessica Mathew RN RN ke1 Corrections: (The following items were deleted from the chart) 09:12 08:51 Analia Byrd cha, cha
--- NOTE | 2021-12-15 08:51 | ER ---
Nurse's Notes [facility] Name: Cinthia Martinez Age: 41 yrs Sex: Female : 1980 Arrival Date: 12/15/2021 Time: 04:47 Bed 5 Private MD: Diagnosis: Calculus of gallbladder and bile duct without cholecystitis with obstruction;Chest pain, unspecified;Gastro-esophageal reflux disease with esophagitis Presentation: 12/15 04:49 Chief complaint: Patient states: chest pressure started at 12am, left hand numbness, sf1 ems gave aspirin 324mg and 2 nitro prior to arrival. Coronavirus screen: Vaccine status: Patient reports receiving the 2nd dose of the covid vaccine. Client denies travel out of the [place] in the last 14 days. Ebola Screen: Patient negative for fever greater than or equal to 101.5 degrees Fahrenheit, and additional compatible Ebola Virus Disease symptoms Patient denies exposure to infectious person. Patient denies travel to an Ebola-affected area in the 21 days before illness onset. Initial Sepsis Screen: Does the patient meet any 2 criteria? RR > 20 per min. No. Patient's initial sepsis screen is negative. Does the patient have a suspected source of infection? No. Patient's initial sepsis screen is negative. Risk Assessment: Do you want to hurt yourself or someone else? Patient reports no desire to harm self or others. Onset of symptoms was December 15, 2021. 04:49 Method Of Arrival: EMS: [facility] 04:49 Acuity: ZAY 3 sf1 Triage Assessment: 04:51 General: Appears uncomfortable, Behavior is cooperative, appropriate for age. Pain: sf1 Complains of pain in chest Pain currently is 7 out of 10 on a pain scale. Cardiovascular: Reports chest pain. 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 - Social history:: Smoking status: Patient denies any tobacco usage or history of. Patient/guardian denies using alcohol, street drugs. Screenin:31 Abuse screen: Denies threats or abuse. Nutritional screening: No deficits noted. st1 Tuberculosis screening: No symptoms or risk factors identified. Fall Risk None identified. No fall in past 12 months (0 pts). No secondary diagnosis (0 pts). IV access (20 points). Ambulatory Aid- None/Bed Rest/Nurse Assist (0 pts). Gait- Normal/Bed Rest/Wheelchair (0 pts) Mental Status- Oriented to own ability (0 pts). Total Muro Fall Scale indicates No Risk (0-24 pts). Assessment: 05:24 Reassessment: Patient and/or family updated on plan of care and expected duration. Pain st1 level reassessed. Patient is alert, oriented x 3, equal unlabored respirations, skin warm/dry/pink. the patient is a difficult stick as she admits to being dehydrated from drinking over the weekend. An IV ultrasound was used on both IV attempts however the patient refuses to stay still and is moving her legs and body all over the bed. I advised the patient not to move on several occasions however she is noncompliant. I updated Dr. Dorado on the patients IV status and pain level. 05:30 Reassessment: Lab was called for blood draw as the patient is a difficult stick. 1st st1 attempt was unsuccessful. The patient was updated on the need for a UA and was provided a urine cup. 05:42 Pain: Pain began suddenly. st1 06:02 Reassessment: Once the patient is hydrated, she agreed to a urine sample and redraw for st1 labs. Dr. Dorado is aware. 07:25 General: Appears in no apparent distress. Behavior is appropriate for age. Pain: ke1 Complains of pain in chest Pain currently is 5 out of 10 on a pain scale. Neuro: Level of Consciousness is awake, alert, obeys commands. Cardiovascular: Heart tones S1 S2 present Capillary refill < 3 seconds Patient's skin is warm and dry. Pulses are all present. 07:25 Respiratory: Airway is patent Breath sounds are clear bilaterally. ke1 07:25 GI: Abdomen is round non-distended. ke1 08:45 Pain: Complains of pain in chest Pain currently is 2 out of 10 on a pain scale. ke1 10:00 Reassessment: No changes from previously documented assessment. ke1 10:50 Reassessment: patient in CT. ke1 11:42 Reassessment: Patient denies pain at this time. ke1 13:40 Reassessment: Patient left for surgery, report given to OR nurse Anneliese. ke1 Vital Signs: 04:49 BP 127 / 77; Pulse 72; Resp 24; Temp 98.4; Pulse Ox 96% ; Weight 79.38 kg; Height 5 ft. sf1 6 in. (167.64 cm); Pain 7/10; 08:50 BP 111 / 85; Pulse 111; Resp 17; Pulse Ox 99% on R/A; ke1 04:49 Body Mass Index 28.25 (79.38 kg, 167.64 cm) sf1 Vitals: 08:50 Cardiac Rhythm Assessment Sinus tach. ke1 Carolina Coma Score: 05:32 Eye Response: spontaneous(4). Verbal Response: oriented(5). Motor Response: obeys st1 commands(6). Total: 15. ED Course: 04:47 Patient arrived in ED. wm 04:51 Triage completed. sf1 04:51 Arm band placed on. sf1 04:54 EKG completed in triage. Results shown to MD. EKG completed in triage. Results shown to sf1 MD. 04:55 EKG done, by medical coding technician. reviewed by Daniel Dorado MD. oe 04:56 Daniel Dorado MD is Attending Physician. 7 05:23 Missed attempt(s): 20 gauge in right antecubital area. st1 05:24 Inserted saline lock: 20 gauge in left antecubital area, using aseptic technique. st1 05:28 XRAY Chest (1 view) In Process Unspecified. EDMS 05:41 Patient has correct armband on for positive identification. Placed in gown. Bed in low st1 position. Call light in reach. Side rails up X2. quality assurance monitor final on. Pulse ox on. NIBP on. 05:41 Patient maintains SpO2 saturation greater than 95% on room air. st1 07:10 Jessica Mathew, CARLIN is Primary Nurse. ke1 07:14 Attending Physician role handed off by Daniel Dorado MD ivelisse 07:14 Faisal Tay MD is Attending Physician. ivelisse 07:51 US Abdomen Limited In Process Unspecified. EDMS 08:00 Inserted saline lock: 18 gauge in left ,using aseptic technique. IJ PER MD TAY. ke1 08:46 Analia Byrd MD is Hospitalizing Provider. ivelisse 09:12 Maru Salcedo MD is Hospitalizing Provider. ivelisse 10:08 US Extremity Venous W Compression Pablo In Process Unspecified. EDMS 10:28 CT Chest For PE Angio In Process Unspecified. EDMS 10:28 CT Abd/Pelvis - IV Contrast Only In Process Unspecified. EDMS 10:37 Cholangiogram In Process Unspecified. EDMS 11:43 SARS-COV-2 RT PCR (Document "Date of Onset" if Symptomatic) Sent. ke1 Administered Medications: 05:39 Drug: NS 0.9% 1000 ml Route: IV; Rate: 1 bolus; Site: left antecubital; st1 08:57 Follow up: IV Status: Completed infusion ke1 07:39 Drug: morphine 2 mg Route: IVP; Site: left antecubital; ke1 08:00 Follow up: Response: Pain is decreased ke1 07:39 Drug: Zofran (Ondansetron) 4 mg Route: IVP; Site: left antecubital; ke1 08:00 Follow up: Response: No adverse reaction ke1 08:10 Drug: ProTONIX (pantoprazole) 40 mg Route: IVP; Site: left antecubital; ke1 08:33 Follow up: Response: No adverse reaction; RASS: Deep sedation (-4) ke1 09:07 Drug: Rocephin (cefTRIAXone) 1 grams Route: IV; Rate: per protocol; Site: left jugular; ke1 09:15 Follow up: Response: No adverse reaction ke1 09:15 Follow up: IV Status: Completed infusion ke1 Outcome: 08:51 Decision to Hospitalize by Provider. ivelisse 14:39 Patient left the ED. ke1 Signatures: Dispatcher [employer] EDMS Faisal Tay MD MD cha Espinosa, Orlando oe Holmes, Maurice, MD MD 7 Melissa White Shellie, RN RN st1 Kaykay Quintanilla RN RN sf1 Jessica Mathew RN RN ke1 Corrections: (The following items were deleted from the chart) 08:31 07:25 Cardiovascular: Capillary refill < 3 seconds Patient's skin is warm and dry. ke1 ke1 08:40 07:25 Cardiovascular: Capillary refill < 3 seconds Patient's skin is warm and dry. ke1 ke1 08:45 08:37 GI: Abdomen is round non-distended, [facility] ke1
[2021-12-15 08:52] LABS: Protime INR 1.08
[2021-12-15] MEDS ORDERED: CEFTRIAXONE 1000 MG/VIAL ONE (09:02)
[2021-12-15] MEDS ORDERED: NA CHLORIDE 0.9% 50 ML ONE (09:06)
[2021-12-15 09:23] LABS: Urine Specific Gravity/Preg 1.025 (1.005-1.030)
--- NOTE | 2021-12-15 10:30 | RAD REPORT ---
EXAM DESCRIPTION: US - Extrem Venous W Compress Pablo - 12/15/2021 10:08 am CLINICAL HISTORY: PAIN COMPARISON: None. TECHNIQUE: Real-time sonographic evaluation of the bilateral lower extremity deep venous systems was performed. FINDINGS: Normal compressibility, flow augmentation, phasic flow and spontaneous flow is identified in both the left and right lower extremity deep venous systems. No intraluminal filling defects seen. IMPRESSION: No DVT in either lower extremity.
--- NOTE | 2021-12-15 10:36 | RAD REPORT ---
EXAM DESCRIPTION: CT - Chest For Pe Angio - 12/15/2021 10:28 am CLINICAL HISTORY: CHEST PAIN COMPARISON: No comparisons FINDINGS: Chest Wall: No suspicious thyroid nodules or pathologic lymphadenopathy. Bilateral breast prostheses. Lungs: No acute abnormality. Pleura: No significant effusions or pneumothorax. Mediastinum/epifanio: No pathologic lymphadenopathy. Pulmonary arteries/Aorta: No filling defect identified. No aortic aneurysm. Heart: No significant pericardial effusion. Normal heart size. Upper abdomen: Cholelithiasis. Bones: No acute abnormality. All CT scans are performed using dose optimization technique as appropriate and may include automated exposure control or mA/KV adjustment according to patient size. IMPRESSION: Negative for pulmonary embolism. No acute findings within the chest.
--- NOTE | 2021-12-15 10:38 | RAD REPORT ---
EXAM DESCRIPTION: CTAbdomen Pelvis W Contrast - 12/15/2021 10:28 am CLINICAL HISTORY: ABD PAIN COMPARISON: Abdomen Exam Limited dated 12/15/2021 TECHNIQUE: CT of the abdomen and pelvis was performed with contrast. All CT scans are performed using dose optimization technique as appropriate and may include automated exposure control or mA/KV adjustment according to patient size. FINDINGS: Lower chest: No acute abnormality. Liver: Mild intrahepatic biliary ductal dilatation. Biliary: Mild extrahepatic biliary ductal dilatation. Cholelithiasis. No CT evidence of acute cholecy stitis. Stomach: No significant focal abnormality. Duodenum: No significant focal abnormality. Pancreas: No significant abnormality. Spleen: No significant abnormality. Adrenal: No suspicious lesions. Kidney/ureter: No hydronephrosis. No renal calculi. Retroperitoneum: No retroperitoneal adenopathy. Vascular: No aneurysm. Bowel: Appendectomy. Moderate colonic stool. No bowel obstruction.. Peritoneum: No ascites or free air. Bladder: Bladder wall thickening and hyperenhancement. Reproductive: No adnexal masses. Bones: No acute fracture. Other: n/a IMPRESSION: 1. Cholelithiasis with mild biliary ductal dilatation, also noted on the ultrasound. No obstructing stone or mass identified. Consider MRCP for further evaluation. 2. Mild bladder wall thickening and hyperenhancement. Correlate with urinalysis to exclude cystitis .
--- NOTE | 2021-12-15 11:58 | RAD REPORT ---
EXAM DESCRIPTION: MRI - Cholangiogram - 12/15/2021 10:50 am CLINICAL HISTORY: abd pain COMPARISON: Chest For Pe Angio dated 12/15/2021; Abdomen Exam Limited dated 12/15/2021; Abdomen Pelv is W Contrast dated 12/15/2021; Extrem Venous W Compress Pablo dated 12/15/2021 FINDINGS: Three-dimensional MRCP was performed using maximum intensity projection reconstruction on the same work station. The extrahepatic common bile duct measures 7 millimeters. No intrahepatic biliary ductal dilatation. Small amount of dependent susceptibility along the fundus of the gallbladder consistent with either c holelithiasis or gallbladder wall calcification. Bilateral breast prostheses. Spleen is unremarkable. The pancreas is unremarkable. Limited T2 sequences through the abdomen demonstrates no bulky adenopathy, significant free fluid or abscess. IMPRESSION: Mild extrahepatic biliary ductal dilatation (7 mm) without evidence of choledocholithias is. Cholelithiasis versus small focus of gallbladder wall calcification.
--- NOTE | 2021-12-15 12:48 | RAD REPORT ---
EXAM DESCRIPTION: RAD - Chest Single View - 12/15/2021 5:28 am CLINICAL HISTORY: 1 years Female, CHEST PAIN COMPARISON: None FINDINGS: No focal lung consolidation. No pleural effusion. No pneumothorax. Cardiac and mediastinal silhouette is unremarkable. No acute osseous abnormality. Soft tissues are unremarkable. IMPRESSION: Decreased lung volumes.. No focal lung consolidation. Electronically signed by: Neil Pacheco DO 12/15/2021 5:46 AM [employer] APPRENTICE Due to temporary technical issues with the PACS/Fluency reporting system, reports are being signed by the in house radiologist without review as a courtesy to ensure prompt reporting. The interpreting r adiologist is fully responsible for the content of the report
[2021-12-15 13:00] LABS: Blood Morphology Comment NOT SEEN (NOT SEEN); Platelet Estimate ADEQ; White Blood Cell Scan OK (OK)
[2021-12-15] MEDS ORDERED: ONDANSETRON 4 MG/2 ML VIAL IV PRN (13:19)
[2021-12-15] MEDS ORDERED: MORPHINE 2 MG/ML SYR IV PRN (13:19)
[2021-12-15] MEDS ORDERED: ALBUTEROL 2.5 MG/3 ML NEB SOL NEB PRN ×2 (13:19→17:00)
--- NOTE | 2021-12-15 13:25 | P.HP ---
Certification for Inpatient With expected LOS: >2 Midnights Patient will require the following post-hospital care: None Practitioner: I am a practitioner with admitting privileges, knowledge of patient current condition, hospital course, and medical plan of care. Services: Services provided to patient in accordance with Admission requirements found in Title 42 Section 412.3 of the Code of Federal Regulations Patient History Date of Service: 12/15/21 Reason for admission: Chest pain History of Present Illness: 41-year-old female with history of anxiety, cardiac ablation in the past for known cardiac etiology, presented because of right chest wall pain radiating to the epigastric area and to the midsternal area, associated with mild nausea but no vomiting. Pain has been intermittent since the last 3 days. No associated palpitation, headache or dizziness. On arrival in the ED, EKG was unremarkable with normal sinus rhythm and no ST elevation. Initial set of cardiac enzymes were negative. Patient had an abdominal ultrasound with finding of a acute gallbladder calculus with no cholecystitis. CT of the abdomen was obtained with findings. Cholelithiasis with mild biliary ductal dilatation, also noted on the ultrasound. No obstructing stone or mass identified. Consider MRCP for further evaluation. 2. Mild bladder wall thickening and hyperenhancement. Correlate with urinalysis to exclude cystitis . Allergies No Known Allergies Allergy (Unverified 12/15/21 12:13) - Past Medical/Surgical History -: Anxiety disorder -: Cardiac ablation Past Surgical History: Reviewed- Non-Contributory - Social History Smoking Status: Never smoker Smoking therapy provided: No Patient receptive to therapy: No Alcohol use: No CD- Drugs: No Caffeine use: No Place of Residence: Home Review of Systems 10-point ROS is otherwise unremarkable Physical Examination - Physical Exam General: Alert, In no apparent distress, Oriented x3 HEENT: Atraumatic, Normocephalic, PERRLA Neck: Supple, 2+ carotid pulse no bruit Respiratory: Clear to auscultation bilaterally, Normal air movement Cardiovascular: No edema, Normal pulses, Regular rate/rhythm, Normal S1 S2 Gastrointestinal: Normal bowel sounds, Soft and benign, Non-distended, W/out succussion splash, No ascites Integumentary: No rashes, No breakdown Neurological: Normal gait, Normal speech, Normal strength at 5/5 x4 extr - Studies Laboratory Data (last 24 hrs) 12/15/21 08:20: Lipase 194 12/15/21 08:20: PT 12.4, INR 1.08 12/15/21 08:20: WBC 7.50, Hgb 13.6, Hct 40.6, Plt Count 197 12/15/21 05:27: Sodium 140, Potassium 3.5, BUN 13, Creatinine 0.94, Glucose 106, Magnesium 2.3, Total Bilirubin 0.3, AST 125 H, ALT 78, Alkaline Phosphatase 71 Assessment and Plan Discharge Plan: Home - Advance Directives Does patient have a Living Will: No Does patient have a Durable POA for Healthcare: No Physician Review Additional Text: Impression Atypical chest pain Acute cholelithiasis Anxiety disorder Plan We will admit to inpatient status We will do serial set of cardiac enzymes Do IV pain regimen with antiemetic as needed We will consult general surgery for possible cholecystectomy if still persistent pain Will obtain MRCP today Patient is full code GI and DVT prophylaxis We will keep n.p.o. for now
[2021-12-15] MEDS ORDERED: Ringers Lactate 1,000 ML IV ONE (13:31)
--- NOTE | 2021-12-15 13:44 | P.HP ---
Date of Service: 12/15/21 PC: This 41-year-old female presents to the emergency room with severe upper abdominal/chest pain for diagnosis and treatment. HPC: This patient had sudden onset of severe upper abdominal pain, radiating to her back. Has a past history of cardiac ablation. Thought it may be cardiac in origin. Had had some dietary indiscretion this weekend with heavy fatty foods. Ate some ice cream last night, and shortly thereafter the pain began, it only was relieved after receiving some narcotics in the ER. PSHx: Previous tummy tuck, appendectomy PMHx: Cardiac ablation Social Hx: No known allergies Sys R: No cough, wheeze, shortness of breath. No recent GI complaints. No urinary tract infection. O/E: Awake alert vital signs are stable HEENT: Nonicteric Chest: Air entry equal bilaterally Abd: Tender in the right upper quadrant [place]: Intact Data: Patient has cholecystitis with cholelithiasis, and MRCP ruled out choledocholithiasis. White cell count is normal, slight bump in ALT. Impression: Cholecystitis with cholelithiasis, biliary dyskinesia Plan: I'll taken the operating room for laparoscopic possible open chol ecystectomy. We will also do a cholangiogram. The risks of this procedure have been discussed. The possibility of bleeding, infection, injury to bile ducts blood vessels and intestines has been described. The possible need for an open and/or further surgeries or procedures was discussed. She understands and wants us to proceed.
[2021-12-15] MEDS ORDERED: SUCCINYLCHOLINE 20 MG/ML (10 ML) IV ONE (14:01)
[2021-12-15] MEDS ORDERED: FENTANYL CITR 100 MCG/2 ML ONE (14:04)
[2021-12-15] MEDS ORDERED: ROCURONIUM 50 MG/5 ML VIAL IV ONE (14:04)
[2021-12-15] MEDS ORDERED: propofoL 200 MG/20 ML VIAL IV ONE (14:04)
[2021-12-15] MEDS ORDERED: MIDAZOLAM HCL 2 MG/2 ML INJ ONE (14:04)
[2021-12-15] MEDS ORDERED: dexAMETHasone 10 MG/ML VIAL ONE (14:33)
[2021-12-15] MEDS ORDERED: GLYCOPYRROLATE 0.2 MG/ML SYR ONE (15:11)
--- NOTE | 2021-12-15 15:21 | P.OP ---
Preoperative diagnosis: Acute on chronic cholecystitis with cholelithiasis, biliary colic Postoperative diagnosis: The same Primary procedure: Laparoscopic cholecystectomy Secondary procedure: Cholangiogram Other procedure(s): Tap block, excision of 3 skin tags Estimated blood loss: Less than 10 cc Specimen: Gallbladder and contents Operative Technique: The patient brought the operating room and placed supine on the table. After the induction of adequate general endotracheal anesthesia, the area of the abdomen was prepped with a DuraPrep solution, and she was draped in usual as eptic manner. A subumbilical incision was made. This was brought down through the skin and subcutaneous tissue. The Visiport was used to enter the peritoneal cavity and created pneumoperitoneum to approximately 12 mmHg. Under direct vision a 5 mm trocar was placed in the upper midline, and 2 other 5 mm trochars on the right lateral side of the abdomen. The patient was now placed in reverse Tr endelenburg. The table was rolled to the left. We could visualize the right upper quadrant. We could see a chronically inflamed gallbladder with an acute component. The wall of the gallbladder was somewhat edematous. A grasper was placed on the fundus, and another down by Bonilla's pouch. Applying lateral traction we were able to dissect and expose both the cystic duct and artery. Having obtained the critical view, a clip was placed between the gallbladder and the cystic duct. An opening was made into the cystic duct through which we obtained a cholangiogram. The cholangiogram demonstrated good flow of contrast into the duodenum, we did see the dilation of the common bile duct, no other intra ductal pathology was noted there were no filling defects seen. The catheter was now removed. Clips were placed on the distal portion of the cystic duct. The cystic duct was now fully transected. The cystic artery was dealt with in a similar fashion. The gallbladder was now dissected free from the liver bed, placed into an Endo Catch, and brought out through the umbilical trocar site. The liver bed was now inspected to ensure adequate hemostasis. The irrigating fluid was aspirated from the peritoneal cavity. The umbilical trocar site was approximated using the Endo Close and an absorbable suture. With the patient back in the neutral position, the pneumoperitoneum was colla psed, the trochars removed, and the suture tied. At the end of this portion of the procedure martina were applied to the skin. Attention was now turned towards the base of the left side of the patient's neck. She had 3 pigmented skin tags in that area. They were crushed with a hemostat, then taken at the base with an 11 blade. Electrocautery was used to provide hemostasis. At the end of the procedure the patient was in a stable condition was sent to the recovery room. Needle sponge instrument count were correct. No drains were placed. Complications: None Transferred to: Recovery Room Condition: Good
[2021-12-15] MEDS ORDERED: NEOSTIGMINE 1 MG/ML -5 ML ONE (15:26)
--- NOTE | 2021-12-15 16:26 | RAD REPORT ---
EXAM DESCRIPTION: RADCholangiogram Oper-Xray Or12/15/2021 3:44 pm CLINICAL HISTORY: Abdominal pain FINDINGS: The examination was performed by Dr. Khalil. The cystic duct was cannulated and contrast administered. Contrast flowed into the duodenum. The biliary tree is normal caliber without a filling defect seen. Fluoroscopy time 0.1 minute. Two fluoroscopic spot images obtained
[2021-12-15] MEDS: D5.45NS W/KCL 20MEQ 1,000 ML IV SCH ×2 (16:53→23:18)
[2021-12-15] MEDS: MORPHINE 4 MG/ML SYR IV PRN (16:54)
[2021-12-15] MEDS: ONDANSETRON 4 MG/2 ML VIAL IV PRN ×2 (16:54→23:18)
[2021-12-15] MEDS: HYDROCODONE/APAP 7.5/325 MG TAB PO PRN (20:00)
[2021-12-16 09:12] VITALS: O2SAT 100
[2021-12-16] MEDS: MORPHINE 4 MG/ML SYR IV PRN (09:17)
[2021-12-16] MEDS: D5.45NS W/KCL 20MEQ 1,000 ML IV SCH (12:40)
[2021-12-16 13:05] VITALS: BP 137/87; TEMP 97.8
[2021-12-16] MEDS: HYDROCODONE/APAP 7.5/325 MG TAB PO PRN (13:14)
[2021-12-16 13:29] VITALS: BMI 27.4
--- NOTE | 2021-12-16 14:03 | P.PN ---
Date of Service: 12/16/21 S: Patient feels well today, has been up moving around. Pain is controlled on oral medication. O: Vital signs are stable A: Surgically stable status post laparoscopic cholecystectomy with negative cholangiogram PE: Patient was admitted for observation and pain control. Today she is up ambulating, her pain is controlled on oral medication. She is anxious to be discharged. Instructions have been given, she will see me next week in my office.
--- NOTE | 2021-12-16 15:58 | P.DS ---
Admission Date: 12/15/21 Discharge Date: 12/16/21 Disposition: ROUTINE DISCHARGE Discharge Condition: GOOD Reason for Admission: Chest pain Hospital Course: Patient is a 41-year-old female who was admitted to the hospital with acute cholelithiasis. Today's postop day #1 status post lap maria e. She tolerated her procedure well. She was seen by me postoperatively. She had no acute complaints. She has been cleared by surgery for discharge. Vital Signs/Physical Exam: Temp Pulse Resp BP Pulse Ox 97.8 F 83 17 137/87 100 12/16/21 12:00 12/16/21 12:00 12/16/21 14:14 12/16/21 12:00 12/16/21 12:00 General: Alert, In no apparent distress, Cooperative HEENT: Atraumatic, Normocephalic Respiratory: Clear to auscultation bilaterally, Normal air movement Cardiovascular: No edema, Normal pulses, Regular rate/rhythm, Normal S1 S2 Gastrointestinal: Soft and benign, Non-distended Neurological: Normal speech, Normal affect Laboratory Data at Discharge: WBC 7.50 K/uL (4.3-10.9) 12/15/21 08:20 Hgb 13.6 g/dL (12.0-15.0) 12/15/21 08:20 Hct 40.6 % (36.0-45.0) 12/15/21 08:20 Plt Count 197 K/uL (152-406) 12/15/21 08:20 PT 12.4 SECONDS (9.5-12.5) 12/15/21 08:20 INR 1.08 12/15/21 08:20 Sodium 140 mmol/L (136-145) 12/15/21 05:27 Potassium 3.5 mmol/L (3.5-5.1) 12/15/21 05:27 BUN 13 mg/dL (7-18) 12/15/21 05:27 Creatinine 0.94 mg/dL (0.55-1.3) 12/15/21 05:27 Glucose 106 mg/dL (74-106) 12/15/21 05:27 Magnesium 2.3 mg/dL (1.8-2.4) 12/15/21 05:27 Total Bilirubin 0.3 mg/dL (0.2-1.0) 12/15/21 05:27 AST 125 U/L (15-37) H 12/15/21 05:27 ALT 78 U/L (12-78) 12/15/21 05:27 Alkaline Phosphatase 71 U/L (45-117) 12/15/21 05:27 Lipase 194 U/L (73-393) 12/15/21 08:20 Home Medications: Bupropion HCl [Wellbutrin Xl] 1 tab PO DAILY 12/15/21 Hydrocodone Bit/Acetaminophen [[place] 10-325 Tablet] 1 each PO Q6HP PRN #1 tablet 12/16/21 New Medications: Hydrocodone Bit/Acetaminophen [[place] 10-325 Tablet] 1 each PO Q6HP PRN #1 tablet PRN Reason: Pain Scale 8-10 (Severe) Physician Discharge Instructions: PROBLEM: Cholecystectomy GOAL: Clear understanding of disease process INSTRUCTIONS: Ok to discharge home Follow up with Primary Care Provider in 1-2 weeks Follow up with Dr. Khalil in 1 week Take new medication as prescribed, [place], Milk of Magnesia as needed Contact physician or return to ER for any complications or concerns Call [phone] for any questions regarding hospital stay Diet: Low fat Activity: No strenuous activity IMMUNIZATION Influenza Vaccine Indicated: No Influenza Vaccine Given: Date Given: Pneumonia Vaccine Indicated: No Pneumonia Vaccine Given: Date Given: Followup: Neil Khalil MD [ACTIVE - CAN ADMIT] - 1 Week (See Dr. Khalil next Wednesday or Wednesday)
== END 2021-12-16 15:30 | disposition home or self-care (01) | DRG 419 ==
LOC: ER 04:46 → ERHOLD 13:20 → 2ND 15:18
PROVIDERS: ADMIT Internal Medicine; ATTEND Internal Medicine
PROC: BF00YZZ Plain Radiography of Bile Ducts using Other Contrast (ICD-10-PCS; 2021-12-15)
PROC: 0HB4XZZ Excision of Neck Skin, External Approach (ICD-10-PCS; 2021-12-15)
PROC: 05HQ33Z Insertion of Infusion Device into Left External Jugular Vein, Percutaneous Approach (ICD-10-PCS; 2021-12-15)
PROC: 0FT44ZZ Resection of Gallbladder, Percutaneous Endoscopic Approach (ICD-10-PCS; principal; 2021-12-15 13:30)
DX: K80.12 Calculus of gallbladder with acute and chronic cholecystitis without obstruction (principal); L91.8 Other hypertrophic disorders of the skin; K82.8 Other specified diseases of gallbladder; F41.9 Anxiety disorder, unspecified; Z20.822 Contact with and (suspected) exposure to COVID-19
CPT/HCPCS: 36415; 71045; 71275; 74177; 74181; 74300; 76705; 80048; 80076; 80307; 80320; 81003; 81025; 83690; 83735; 83880; 84484; 85025; 85379; 85610; 88304; 93005; 93970; 94010; 99285; C9113; J0330; J1100; J2250; J2270; J2405; J2704; J2710; J3010; J7030; J7120; Q9967; U0003